=== PATIENT | male | born 1985 | race African-American/Black ===

== ENCOUNTER 2018-09-06 12:22 | Emergency (ER) | payer OTHER, MEDICAID ==
[~2018-09-06] VITALS: Ht 177.8 cm; Wt 63.5 kg
[2018-09-06 12:22] VITALS: BP_SYST 141
--- NOTE | 2018-09-06 12:22 | NUR ---
BROUGHT IN BY [facility], PLACED IN BED AND TRIAGED. REPORT GIVEN TO MADHAVI
--- NOTE | 2018-09-06 12:36 | NUR ---
DR CASTRO AT BEDSIDE FOR EVALUATION
--- NOTE | 2018-09-06 12:38 | NUR ---
PATIENT CAME IN COMPLAINING OF BLEEDING IN FOOT BECAUSE HE HIT IT. PATIENT WHEEL CHAIR BOUND SINCE 2006 FROM FALL. PATIENT HAS LACERATION ON HEEL THAT HE STATES HE GOT 2 WEEKS AGO. PATIENT NOT COMPLAINING OF PAIN, SOB, NAUSEA OR VOMITING. PATIENT ALERT AND ORIENTED X4.
--- NOTE | 2018-09-06 13:05 | NUR ---
PATIENT GETTING WOUND CARE BY EMT.
[2018-09-06] MEDS ORDERED: BACITRACIN 1 GM OINT TP ONE (13:08)
[2018-09-06 13:50] VITALS: BP_SYST 141
--- NOTE | 2018-09-06 13:50 | NUR ---
Patient given written and verbal discharge instructions and verbalizes understanding. ER MD discussed with patient the results and treatment provided. Patient in stable condition. ID arm band removed. Rx OF CLINDAMYCIN given. Patient educated on pain management and to follow up with PMD. Pain Scale 0/10. Opportunity for questions provided and answered. Medication side effect fact sheet provided.
== END 2018-09-06 13:50 | disposition home or self-care (01) ==
LOC: SED 12:22
DX: S91.311A Laceration without foreign body, right foot, initial encounter (principal); Z88.6 Allergy status to analgesic agent; W22.8XXA Striking against or struck by other objects, initial encounter; Y93.89 Activity, other specified; Y92.89 Other specified places as the place of occurrence of the external cause; Y99.8 Other external cause status
CPT/HCPCS: 99283